=== PATIENT | female | born 1980 | race Caucasian/White ===

== ENCOUNTER 2018-02-21 14:30 | Emergency (ER) | payer BC ==
[~2018-02-21] VITALS: Ht 160 cm; Wt 79.2 kg
[2018-02-21 14:35] VITALS: TEMP 37.1; Ht 160 cm; Wt 79.2 kg
--- NOTE | 2018-02-21 14:53 | EMERGENCY ROOM VISIT NOTE ---
History First contact with patient: 14:42 Chief Complaint: SHORTNESS OF BREATH Stated Complaint: WORSENING SOB, EXERTIONAL DYSEPNEA History of Present Illness The patient is a 37 year old female who presents to the Emergency Room via private vehicle accompanied by male with complaints of "worsening shortness of breath, exertional dyspnea". The patient states that for the past month she has had shortness of breath, and over the past week has had substernal chest pain worse with exertion. There is lightheadedness. She denies cough. There is also right calf pain worse over the past month. There is no previous history of PE or DVT. She underwent a D&C procedure last week. Things seem to worsen since that time. No hemoptysis. She also notes prolonged immobilization with travel to [place]. Review of Systems A complete 10-point Review of Systems was discussed with the patient, with pertinent positives and negatives listed in the History of Present Illness. All remaining Review of Systems questions can be considered negative unless otherwise specified. Past Medical/Surgical History Recent D&C procedure. Family History Noncontributory. Social History Smoking Status: Never Smoker Patient lives locally. Current/Historical Medications No Active Prescriptions or Reported Meds Physical Exam Vital Signs Date Time Temp Pulse Resp B/P (MAP) Pulse Ox O2 Delivery O2 Flow Rate FiO2 02/21/18 20:22 78 18 148/100 98 Room Air 02/21/18 18:22 87 16 150/87 Room Air 02/21/18 16:55 82 26 150/93 100 02/21/18 15:28 90 02/21/18 15:14 86 21 140/95 99 Room Air 02/21/18 15:09 99 Room Air 02/21/18 15:09 99 Room Air 02/21/18 14:35 37.1 90 16 161/99 98 Room Air Physical Exam VITAL SIGNS - Vital signs and nursing notes were reviewed. Stable. GENERAL - 37-year-old female appearing her stated age who is in no acute distress. Communicates well with provider and answers questions appropriately. SKIN - Without rashes. HEAD - NC/AT. EYES - PERRL with EOMI bilaterally. Sclera anicteric. EARS - No deformities of external structures noted on gross examination bilaterally. NOSE - Midline and without cyanosis. No epistaxis or purulent drainage noted. MOUTH/OROPHARYNX - Without perioral cyanosis. NECK - Neck with FROM. LUNGS - Chest wall symmetric without accessory muscle use, intercostals retractions, or central cyanosis. Normal vesicular breath sounds CTA B/L. No wheezes, rales, or rhonchi appreciated. CARDIAC - RRR with S1/S2. No murmur, rubs, or gallops appreciated. ABDOMEN - Abdominal contour normal without pulsations or visible masses. BS normoactive all four quadrants. No tenderness, palpable masses, hepatosplenomegaly, or ascites noted. EXTREMITIES - No clubbing or peripheral cyanosis. No pretibial edema present. R calf tenderness. +5/5 strength noted in UE/LE bilaterally. NEUROLOGIC - Cranial nerves II through XII grossly intact. Sensory intact to light touch throughout. PSYCH - A&O, and cooperates fully with examiner. Pt is very pleasant and interacts well with examiner. Medical Decision & Procedures ER Provider Diagnostic Interpretation: CT ANGIOGRAM OF THE CHEST CLINICAL HISTORY: Worsening shortness of breath and chest tightness. COMPARISON STUDY: No previous studies for comparison. TECHNIQUE: Following the IV administration of 112 mL of Optiray-320, CT angiogram of the thorax was performed from the thoracic inlet to the lung bases utilizing the pulmonary embolus protocol. Images are reviewed in the axial, sagittal, and coronal planes. IV contrast was administered without complication. MIP imaging was performed. A dose lowering technique was utilized adhering to the principles of ALARA. CT DOSE: 365.80 mGy.cm FINDINGS: There is hepatic steatosis. There is a multinodular thyroid gland. No pathologically enlarged axillary mediastinal or hilar lymph nodes were visualized. There was no evidence of thoracic aortic dilatation. There were no pulmonary artery filling defects to indicate acute pulmonary embolism. No pleural effusions are visualized. There are dependent groundglass opacities, likely atelectatic. IMPRESSION: 1. No evidence of acute pulmonary embolism 2. Dependent groundglass opacities likely atelectatic 3. Hepatic steatosis 4. Multinodular thyroid gland Electronically signed by: Nico Perez M.D. 02/21/2018 6:00 PM Dictated Date/Time: 02/21/2018 5:57 PM ULTRASOUND VENOUS DOPPLER LWR EXT BILA CLINICAL HISTORY: Dyspnea on exertion, R calf pain, recent surgery COMPARISON STUDY: No previous studies for comparison. FINDINGS: Real-time and color flow Doppler imaging were performed. Flow was seen within the femoral, popliteal and calf veins with no intraluminal thrombus demonstrated. The saphenous vein is patent. IMPRESSION: No evidence of lower extremity DVT. Electronically signed by: Nico Perez M.D. 02/21/2018 7:10 PM Dictated Date/Time: 02/21/2018 7:09 PM Laboratory Results 02/21/18 16:20 Red Blood Count 4.63, Mean Corpuscular Volume 81.0, Mean Corpuscular Hemoglobin 27.0, Mean Corpuscular Hemoglobin Concent 33.3, Mean Platelet Volume 7.8, Neutrophils (%) (Auto) 62.7, Lymphocytes (%) (Auto) 30.6, Monocytes (%) (Auto) 3.3, Eosinophils (%) (Auto) 2.9, Basophils (%) (Auto) 0.1, Neutrophils # (Auto) 6.10, Lymphocytes # (Auto) 2.97, Monocytes # (Auto) 0.32, Eosinophils # (Auto) 0.28, Basophils # (Auto) 0.01 02/21/18 16:20 Test 02/21/18 15:10 02/21/18 16:20 Urine Color YELLOW Urine Appearance CLEAR (CLEAR) Urine pH 7.5 (4.5-7.5) Urine Specific [employer] 1.007 (1.000-1.030) Urine Protein NEG (NEG) Urine Glucose (UA) NEG (NEG) Urine Ketones NEG (NEG) Urine Occult Blood 2+ (NEG) Urine Nitrite NEG (NEG) Urine Bilirubin NEG (NEG) Urine Urobilinogen NEG (NEG) Urine Leukocyte Esterase SMALL (NEG) Urine WBC (Auto) 1-5 /hpf (0-5) Urine RBC (Auto) 0-4 /hpf (0-4) Urine Hyaline Casts (Auto) 0 /lpf (0-5) Urine Epithelial Cells (Auto) 10-20 /lpf (0-5) Urine Bacteria (Auto) 4+ (NEG) Urine Test NEG (NEG) White Blood Count 9.72 K/uL (4.8-10.8) Red Blood Count 4.63 M/uL (4.2-5.4) Hemoglobin 12.5 g/dL (12.0-16.0) Hematocrit 37.5 % (37-47) Mean Corpuscular Volume 81.0 fL (80-100) Mean Corpuscular Hemoglobin 27.0 pg (25-34) Mean Corpuscular Hemoglobin Concent 33.3 g/dl (32-36) Platelet Count 275 K/uL (130-400) Mean Platelet Volume 7.8 fL (7.4-10.4) Neutrophils (%) (Auto) 62.7 % Lymphocytes (%) (Auto) 30.6 % Monocytes (%) (Auto) 3.3 % Eosinophils (%) (Auto) 2.9 % Basophils (%) (Auto) 0.1 % Neutrophils # (Auto) 6.10 K/uL (1.4-6.5) Lymphocytes # (Auto) 2.97 K/uL (1.2-3.4) Monocytes # (Auto) 0.32 K/uL (0.11-0.59) Eosinophils # (Auto) 0.28 K/uL (0-0.5) Basophils # (Auto) 0.01 K/uL (0-0.2) RDW Standard Deviation 37.1 fL (36.4-46.3) RDW Coefficient of Variation 12.7 % (11.5-14.5) Immature Granulocyte % (Auto) 0.4 % Immature Granulocyte # (Auto) 0.04 K/uL (0.00-0.02) Prothrombin Time 9.7 SECONDS (9.0-12.0) Prothromb Time International Ratio 0.9 (0.9-1.1) Activated Partial Thromboplast Time 24.0 SECONDS (21.0-31.0) Partial Thromboplastin Ratio 0.9 Anion Gap 7.0 mmol/L (3-11) Est Creatinine Clear Calc Drug Dose 126.7 ml/min Estimated GFR () 134.0 Estimated GFR (Non- 115.6 BUN/Creatinine Ratio 9.8 (10-20) Calcium Level 8.5 mg/dl (8.5-10.1) Magnesium Level 2.2 mg/dl (1.8-2.4) Total Bilirubin 0.4 mg/dl (0.2-1) Aspartate Amino Transf (AST/SGOT) 21 U/L (15-37) Alanine Aminotransferase (ALT/SGPT) 42 U/L (12-78) Alkaline Phosphatase 61 U/L (45-117) Troponin I < 0.015 ng/ml (0-0.045) Total Protein 7.8 gm/dl (6.4-8.2) Albumin 4.0 gm/dl (3.4-5.0) Globulin 3.8 gm/dl (2.5-4.0) Albumin/Globulin Ratio 1.1 (0.9-2) Thyroid Stimulating Hormone (TSH) 0.298 uIu/ml (0.300-4.500) Free Thyroxine 1.04 ng/dl (0.80-1.60) Medical Decision Patient was seen and evaluated as above in room B2. Review was performed of nursing notes and vital signs. After obtaining a thorough history and physical examination the above work up was performed. She presents to us today with exertional dyspnea and chest pain. She had a recent surgery as well as long travel. No history of PE or DVT. IV access was established. Bedside EKG was performed and reveals normal sinus rhythm, without ectopy or ischemic change per my interpretation at a rate of 83 bpm. Patient's troponin is negative. CT chest for PE as well as bilateral lower extremity ultrasounds were obtained. These were found to be negative for clot. She was informed upon the incidental findings of which she is to follow with her family doctor for. There is no leukocytosis, or concerning anemia. Coags normal. Metabolic panel reveals slight hypokalemia, without evidence of kidney or liver failure. Her TSH is abnormal however her free T4 is normal. She was informed upon the multinodular goiter and is to follow with the family doctor. There is 4+ urine bacteria in her urine but she believes she may be menstruating and has no urinary symptoms. Culture pending. Urine test is negative. Given that her symptoms have been ongoing for at least 1 week with a negative troponin and normal EKG I believe that outpatient management is warranted. I did discuss the case with the attending physician as well as the on-call mechanical specialist, Dr. Whitmore. He recommended to have the patient call the office to schedule follow-up. We discussed the case. Again I believe that she is stable for outpatient management. She was educated upon worrisome symptoms which to return. The patient was educated upon management, had questions answered prior to discharge , and was discharged home in good condition. Case was discussed with the attending physician. In the evaluation and treatment of this patient the following differential diagnoses were entertained: ME, PE, pericarditis, costochondritis, pneumonia, pneumothorax, among others. Impression Primary Impression: Exertional dyspnea Additional Impression: Chest pain Departure Information Dispostion Home / Self-Care Condition GOOD Prescriptions No Active Prescriptions or Reported Meds Referrals Aleks Whitmore M.D. Patient Instructions My [facility] Additional Instructions You have been treated in the Emergency Department your chest pain and shortness of breath. Laboratory results and imaging studies have ruled out any emergent causes for your chest pain/shortness of breath which would warrant admission or surgery tonight. Your case was discussed with Dr. Whitmore, mechanical specialist with [facility]. Please call his office first thing tomorrow morning and explained to them that you were seen in the emergency department and that he would like to see you as soon as possible. If they give you any trouble scheduling this, please have them talk with Dr. Whitmore as he will help see you sooner. Please follow with your family doctor for your low potassium, hepatic steatosis and groundglass opacity on CT scan. Please rest and avoid strenuous activity until seen and evaluated by cardiology. He also spoke with . think she go home on September call my office in For pain control, you can use the following [id number] medicines (if >12 yo): - Regular strength (325mg/tab) Tylenol (acetaminophen) 2 tabs every 4-6 hours as needed. Do not exceed 12 tablets in a 24 hour period. Avoid taking more than grams (3000 mg) of Tylenol per day. This includes any other sources of acetaminophen you may take on a regular basis. Drink plenty of water and stay well hydrated. As with any trip to the Emergency Department, you should follow-up with your Primary Care Provider from today's visit. Return to the emergency department if your symptoms persist despite treatment plan outlined above or if the following symptoms occur: increased fevers, chills , worsening nausea/vomiting, blood in your stool or urine. Problem Qualifiers
[2018-02-21 15:09] VITALS: O2SAT 99
[2018-02-21] MEDS ORDERED: OPTIRAY 320 IV PRN (15:15)
[2018-02-21 16:39] LABS: BASO % 0.1 %; BASO ABS # 0.01 K/uL (0-0.2); EOS % 2.9 %; EOS ABS # 0.28 K/uL (0-0.5); HEMATOCRIT 37.5 % (37-47); HEMOGLOBIN 12.5 g/dL (12.0-16.0); IG# 0.04 K/uL (0.00-0.02); LYMPH % 30.6 %; LYMPH ABS # 2.97 K/uL (1.2-3.4); MEAN CORPUSCULAR HGB CONC 33.3 g/dl (32-36); MEAN PLATELET VOLUME 7.8 fL (7.4-10.4); MONO % 3.3 %; MONO ABS # 0.32 K/uL (0.11-0.59); NEUT % 62.7 %; PLATELET COUNT 275 K/uL (130-400); RED CELL DISTRIBUTION WIDTH CV 12.7 % (11.5-14.5); RED CELL DISTRIBUTION WIDTH SD 37.1 fL (36.4-46.3); WHITE BLOOD COUNT 9.72 K/uL (4.8-10.8)
[2018-02-21 16:53] LABS: INR 0.9 (0.9-1.1)
[2018-02-21 17:01] LABS: ALKALINE PHOSPHATASE 61 U/L (45-117); ALT/SGPT 42 U/L (12-78); AST/SGOT 21 U/L (15-37); BLOOD UREA NITROGEN 6 mg/dl (7-18); CALCIUM 8.5 mg/dl (8.5-10.1); CARBON DIOXIDE 26 mmol/L (21-32); GLUCOSE 89 mg/dl (70-99); POTASSIUM 3.4 mmol/L (3.5-5.1); SODIUM 138 mmol/L (136-145); TOTAL PROTEIN 7.8 gm/dl (6.4-8.2)
--- NOTE | 2018-02-21 18:02 | DIAGNOSTIC IMAGING REPORT ---
CT ANGIOGRAM OF THE CHEST CLINICAL HISTORY: Worsening shortness of breath and chest tightness. COMPARISON STUDY: No previous studies for comparison. TECHNIQUE: Following the IV administration of 112 mL of Optiray-320, CT angiogram of the thorax was performed from the thoracic inlet to the lung bases utilizing the pulmonary embolus protocol. Images are reviewed in the axial, sagittal, and coronal planes. IV contrast was administered without complication. MIP imaging was performed. A dose lowering technique was utilized adhering to the principles of ALARA. CT DOSE: 365.80 mGy.cm FINDINGS: There is hepatic steatosis. There is a multinodular thyroid gland. No pathologically enlarged axillary mediastinal or hilar lymph nodes were visualized. There was no evidence of thoracic aortic dilatation. There were no pulmonary artery filling defects to indicate acute pulmonary embolism. No pleural effusions are visualized. There are dependent groundglass opacities, likely atelectatic. IMPRESSION: 1. No evidence of acute pulmonary embolism 2. Dependent groundglass opacities likely atelectatic 3. Hepatic steatosis 4. Multinodular thyroid gland Electronically signed by: Nico Perez M.D. 02/21/2018 6:00 PM Dictated Date/Time: 02/21/2018 5:57 PM
--- NOTE | 2018-02-21 19:12 | DIAGNOSTIC IMAGING REPORT ---
ULTRASOUND VENOUS DOPPLER LWR EXT BILA CLINICAL HISTORY: Dyspnea on exertion, R calf pain, recent surgery COMPARISON STUDY: No previous studies for comparison. FINDINGS: Real-time and color flow Doppler imaging were performed. Flow was seen within the femoral, popliteal and calf veins with no intraluminal thrombus demonstrated. The saphenous vein is patent. IMPRESSION: No evidence of lower extremity DVT. Electronically signed by: Nico Perez M.D. 02/21/2018 7:10 PM Dictated Date/Time: 02/21/2018 7:09 PM
[2018-02-21 20:22] VITALS: BP 148/100; PULSE 78; O2SAT 98
--- NOTE | 2018-02-23 15:17 | Pharmacy Progress Note ---
ED Pharmacist Culture FollowUp Date of Service: Feb 23, 2018. Called patient regarding klebsiella urine culture. Prescription for macrobid 100mg BID X 5 days called to [facility] at the patient's request. Case discussed with Michael Yanes PA-C, who is the prescribing provider. The patient did not have symptoms, but due to recent procedure the provider felt it would be prudent to treat.
== END 2018-02-21 20:40 | disposition home or self-care (01) ==
LOC: C.EDB 14:32
DX: R06.00 Dyspnea, unspecified (principal); R07.9 Chest pain, unspecified